=== PATIENT | female | born 1950 | race Caucasian/White ===

== ENCOUNTER 2016-06-24 13:54 | Emergency (ER) | payer MEDICARE, BC ==
[~2016-06-24] VITALS: Ht 167.6 cm; Wt 51.3 kg
[~2016-06-24 13:54] MED LIST: BENADRYL25 MG ORAL; CALCIUM600 M1 PO; EPIPEN 2-P0.3 MG/0.3 IM; FISH OIL 1,0001 EAC3 ORAL; HRT; LORAZEPAM0.5 MG ORAL; MINIVELLE1 EAC1 TD; MULTIVITAMINS1 EAC2 ORAL; OCUFLOX5 ML OP; SEROQUEL300 MG ORAL; TYLENOL EXTRA500 MG ORAL; VITAMIN D1000 UNI1 ORAL; ZANTAC150 MG ORAL; magnesium PO
[2016-06-24 14:48] VITALS: BP 125/69
[2016-06-24 14:59] LABS: BASOPHILS % (AUTO) 1.8 % (0.0-2.0); EOSINOPHILS % (AUTO) 0.6 % (0.0-3.0); LYMPHOCYTES % (AUTO) 21.6 % (20.0-45.0); MEAN CORPUSCULAR HEMOGLOBIN 31.1 PG (27.0-31.0); MEAN CORPUSCULAR HGB CONC 33.6 G/DL (32.0-36.0); MEAN CORPUSCULAR VOLUME 93 FL (80-99); MEAN PLATELET VOLUME 7.6 FL (6.5-10.1); MONOCYTES % (AUTO) 11.1 % (1.0-10.0); NEUTROPHILS % (AUTO) 64.9 % (45.0-75.0); PLATELET COUNT 217 K/UL (150-450); RED BLOOD COUNT 4.18 M/UL (4.20-5.40); WHITE BLOOD COUNT 6.8 K/UL (4.8-10.8)
--- NOTE | 2016-06-24 15:02 | Emergency Room Report ---
History of Present Illness General Chief Complaint: Dizziness Source: Patient Present Illness HPI Patient present with complaints of general weakness Patient has been having dental problems including trying to get a dental implant Over the past one year Was having increased TMJ discomfort also is having flulike symptoms about 2 weeks ago Over the past 2 days however the patient has had increased weakness Had some increased dizziness at times as well Denies any chest pain or shortness of breath denies any neck pain or photophobia Allergies: Coded Allergies: No Known Allergies (Unverified , 04/29/14) Patient History Past Medical History: see triage record Pertinent Family History: none Reviewed Nursing Documentation: PMH: Agreed, PSxH: Agreed Nursing Documentation-PMH Past Medical History: No Stated History Hx Cardiac Problems: No Hx Cancer: No Hx Gastrointestinal Problems: Yes Hx Neurological Problems: Yes - hx migraine Review of Systems All Other Systems: negative except mentioned in HPI Physical Exam Vital Signs Date Time Temp Pulse Resp B/P Pulse Ox O2 Delivery O2 Flow Rate FiO2 06/24/16 14:02 98.4 101 18 109/69 97 Room Air Sp02 EP Interpretation: reviewed, normal General Appearance: no apparent distress Head: normocephalic, atraumatic Eyes: bilateral eye EOMI, bilateral eye PERRL ENT: hearing grossly normal, normal pharynx, TMs + canals normal, uvula midline Neck: full range of motion, supple, no meningismus, no bony tend Respiratory: lungs clear, normal breath sounds, no rhonchi, no respiratory distress, no retraction, no accessory muscle use Cardiovascular #1: normal peripheral pulses, regular rate, rhythm, no edema, no gallop, no JVD, no murmur Gastrointestinal: normal bowel sounds, non tender, soft, no mass, no organomegaly, non-distended, no guarding, no hernia, no pulsatile mass, no rebound Genitourinary: no CVA tenderness Musculoskeletal: normal inspection Neurologic: oriented x3, responsive, representative III-XII nml as tested, motor strength/ tone normal, sensory intact Psychiatric: mood/affect normal Skin: normal color, no rash, warm/dry, palpation normal Lymphatic: normal inspection, no adenopathy Medical Decision Making Diagnostic Impression: Primary Impression: Dizziness Additional Impression: UTI (urinary tract infection) ER Course Multiple differentials considered patient is complex requiring blood work and imaging study Chest x-ray was normal patient was further hydrated Patient and the family member discussed different headaches the patient was having However the patient states that she has had several MRIs as seen specialty neurologist that [facility] I do not see any focal deficits requiring acute emergency CT The patient's urine sample did show infectious pathology and the patient was placed on antibiotics and requires close outpatient followup Labs Test 06/24/16 14:30 White Blood Count 6.8 K/UL (4.8-10.8) Red Blood Count 4.18 M/UL (4.20-5.40) Hemoglobin 13.0 G/DL (12.0-16.0) Hematocrit 38.6 % (37.0-47.0) Mean Corpuscular Volume 93 FL (80-99) Mean Corpuscular Hemoglobin 31.1 PG (27.0-31.0) Mean Corpuscular Hemoglobin Concent 33.6 G/DL (32.0-36.0) Red Cell Distribution Width 11.0 % (11.6-14.8) Platelet Count 217 K/UL (150-450) Mean Platelet Volume 7.6 FL (6.5-10.1) Neutrophils (%) (Auto) 64.9 % (45.0-75.0) Lymphocytes (%) (Auto) 21.6 % (20.0-45.0) Monocytes (%) (Auto) 11.1 % (1.0-10.0) Eosinophils (%) (Auto) 0.6 % (0.0-3.0) Basophils (%) (Auto) 1.8 % (0.0-2.0) Urine Color Yellow Urine Appearance Clear Urine pH 6 (4.5-8.0) Urine Specific [place] 1.015 (1.005-1.035) Urine Protein 1+ (NEGATIVE) Urine Glucose (UA) Negative (NEGATIVE) Urine Ketones Negative (NEGATIVE) Urine Occult Blood 3+ (NEGATIVE) Urine Nitrite Negative (NEGATIVE) Urine Bilirubin Negative (NEGATIVE) Urine Urobilinogen 1 MG/DL (0.0-1.0) Urine Leukocyte Esterase 2+ (NEGATIVE) Urine RBC 10-15 /HPF (0 - 2) Urine WBC 5-10 /HPF (0 - 2) Urine Squamous Epithelial Cells Moderate /LPF (NONE/OCC) Urine Amorphous Sediment Few /LPF (NONE) Urine Bacteria Moderate /HPF (NONE) Sodium Level 139 mEQ/L (135-145) Potassium Level 4.1 mEQ/L (3.4-4.9) Chloride Level 98 mEQ/L (98-107) Carbon Dioxide Level 26 mEQ/L (20-30) Anion Gap 15 (5-15) Blood Urea Nitrogen 15 mg/dL (7-23) Creatinine 1.0 mg/dL (0.5-0.9) Estimat Glomerular Filtration Rate 55.5 mL/min (>60) Glucose Level 127 mg/dL (74-106) Lactic Acid Level 1.30 mmol/L (0.66-2.22) Calcium Level 9.3 mg/dL (8.6-10.2) Total Bilirubin 0.2 mg/dL (0.0-1.2) Aspartate Amino Transf (AST/SGOT) 24 U/L (5-40) Alanine Aminotransferase (ALT/SGPT) 15 U/L (3-33) Alkaline Phosphatase 57 U/L (35-104) Total Creatine Kinase 82 U/L (26-140) Creatine Kinase MB < 1.5 ng/mL (< 3.8) Creatine Kinase MB Relative Index Total Protein 6.7 g/dL (6.6-8.7) Albumin 4.3 g/dL (3.5-5.2) Globulin 2.4 g/dL Albumin/Globulin Ratio 1.7 (1.0-2.7) Rhythm Strip Diag. Results EP Interpretation: yes Rate: 77 Rhythm: NSR, no PVC's, no ectopy Chest X-Ray Diagnostic Results EP Interpretation: Yes Findings: no consolidation, no effusion, no pneumothorax Number of Views: 1 Last Vital Signs Date Time Temp Pulse Resp B/P Pulse Ox O2 Delivery O2 Flow Rate FiO2 06/24/16 14:48 98.4 71 18 125/69 97 Room Air Status: improved Disposition: HOME, SELF-CARE Condition: Improved Scripts Ibuprofen* (MOTRIN*) 600 Mg Tablet 600 MG ORAL Q8H Y for For Pain, #20 TAB 0 Refills Prov: JORGE MILAN.OLuz Marina 06/24/16 Ciprofloxacin Hcl* (CIPROFLOXACIN HCL*) 500 Mg Tablet 500 MG ORAL Q12H, #14 TAB 0 Refills Prov: JORGE MILANOLuz Marina 06/24/16 Additional Instructions: Patient is provided with the discharge instructions notified to follow up with primary doctor in the next 2-3 days otherwise return to the er with any worsening symptoms. JORGE MILAN D.O. Jun 24, 2016 15:02
[2016-06-24 15:07] LABS: APPEARANCE,URINE CLEAR; KETONES,URINE NEGATIVE (NEGATIVE); LEUKOCYTE ESTERASE ,URINE 2+ (NEGATIVE); NITRITE,URINE NEGATIVE (NEGATIVE); PH,URINE 6 (4.5-8.0); PROTEIN,URINE 1+ (NEGATIVE); UROBILINOGEN,URINE 1 MG/DL (0.0-1.0)
[2016-06-24 15:14] LABS: ALANINE AMINOTRANSFERASE 15 U/L (3-33); ALBUMIN/GLOBULIN RATIO 1.7 (1.0-2.7); ANION GAP 15 (5-15); ASPARTATE AMINO TRANSFERASE 24 U/L (5-40); CALCIUM 9.3 mg/dL (8.6-10.2); CARBON DIOXIDE 26 mEQ/L (20-30); CHLORIDE 98 mEQ/L (98-107); GLOMERULAR FILTRATION RATE 55.5 mL/min (>60); HEMOLYSIS 9; POTASSIUM 4.1 mEQ/L (3.4-4.9); SODIUM 139 mEQ/L (135-145); TOTAL PROTEIN 6.7 g/dL (6.6-8.7)
[2016-06-24 15:20] VITALS: BP 142/78
[2016-06-24 15:24] LABS: CKMB < 1.5 ng/mL (< 3.8)
[2016-06-24 15:28] LABS: AMORPHOUS SEDIMENT,UR FEW /LPF; BACTERIA,URINE MODERATE /HPF; SQUAMOUS EPITHELIAL CELL,UR MODERATE /LPF (NONE/OCC)
[2016-06-24] MEDS ORDERED: CIPROFLOXACIN500 M2 ORAL (15:43)
[2016-06-24] MEDS ORDERED: IBUPROFEN600 MG ORAL (15:43)
[2016-06-24] MEDS ORDERED: Ciprofloxacin 500mg tab ORAL ONE (15:45)
[2016-06-24 15:55] VITALS: BP 142/78
--- NOTE | 2016-06-25 15:57 | Diagnostic Imaging Report ---
Indication: Shortness of breath Technique: Single portable AP view of the chest. Findings: Comparison: None. Lung symmetrically hyperinflated, clear. The bones and extra pulmonary soft tissues, cardiomediastinal silhouette, pulmonary vasculature, and pleural surfaces are unremarkable. IMPRESSION: No evidence of acute cardiopulmonary disease Pulmonary findings suggest COPD.
--- NOTE | 2016-07-23 15:36 | Cardiology Report ---
APPROVED REPORT EKG Measurement Heart [id number] Normal sinus rhythm with sinus arrhythmia Possible Left atrial enlargement Borderline ECG
== END 2016-06-24 15:57 | disposition home or self-care (01) ==
LOC: EMR 14:10
DX: R42 Dizziness and giddiness (principal); N39.0 Urinary tract infection, site not specified; Z86.69 Personal history of other diseases of the nervous system and sense organs
CPT/HCPCS: 36415; 71010; 80053; 81003; 82550; 82553; 83605; 85025; 87040; 87086; 93005; 96374

== ENCOUNTER 2016-12-14 19:14 | Emergency (ER) | payer MEDICARE, BC ==
[~2016-12-14] VITALS: Ht 167.6 cm; Wt 53.5 kg
[~2016-12-14 19:14] MED LIST changes: +CIPROFLOXACIN500 M2 ORAL; +IBUPROFEN600 MG ORAL
[2016-12-14 20:00] VITALS: BP 147/63
[2016-12-14] MEDS ORDERED: Augmentin 875mg Tab ORAL ONE (20:00)
[2016-12-14] MEDS ORDERED: Tetanus/Diptheria/Pertussis Vaccine 0.5ml Syr IM ONE (20:00)
[2016-12-14] MEDS ORDERED: AUGMENTIN 875-1 EAC1 ORAL (20:07)
[2016-12-14 20:20] VITALS: BP 147/63
--- NOTE | 2016-12-16 04:34 | Emergency Room Report ---
History of Present Illness General Chief Complaint: Animal Bite Source: Patient Present Illness HPI The patient is a 66-year-old female who presented after increased pain and swelling to her hand. Patient reports having recently been bitten by cat. She had not been having any fever. She reports having increased swelling. She reports having some increased redness to the area. She reports having no recent tetanus vaccine. Allergies: Coded Allergies: No Known Allergies (Unverified , 04/29/14) Patient History Past Medical History: see triage record Reviewed Nursing Documentation: PMH: Agreed, PSxH: Agreed Nursing Documentation-PMH Past Medical History: No History, Except For Hx Cancer: No Hx Gastrointestinal Problems: Yes Hx Neurological Problems: Yes - Migraine Review of Systems All Other Systems: negative except mentioned in HPI Physical Exam Vital Signs Date Time Temp Pulse Resp B/P Pulse Ox O2 Delivery O2 Flow Rate FiO2 12/14/16 19:42 98.1 76 16 156/76 100 Room Air General Appearance: well appearing, no apparent distress, alert, GCS 15 Head: normocephalic, atraumatic ENT: hearing grossly normal, normal voice Neck: full range of motion, supple Respiratory: no respiratory distress, speaking full sentences Gastrointestinal: normal inspection Musculoskeletal: normal inspection, no calf tenderness Neurologic: normal inspection, alert, oriented x3, responsive, normal gait Psychiatric: mood/affect normal Skin: rash - erythema patch to dorsum of hand Medical Decision Making Diagnostic Impression: Primary Impression: Cat bite ER Course Patient presented for extremity pain after bite. Differential diagnosis included was not limited to cellulitis, abscess, necrotizing fasciitis among others. Patient's benign exam and does not appear to require any further imaging or laboratory testing at this time. The patient presented a mild infection to her hand. Patient was given a prescription for Augmentin. She is given tetanus vaccine. Patient is advised to have the wound checked in one to 2 days. She is advised to return if she began having increased pain or swelling or other concerns. Last Vital Signs Date Time Temp Pulse Resp B/P Pulse Ox O2 Delivery O2 Flow Rate FiO2 12/14/16 20:20 98.1 73 16 147/63 100 Room Air Status: improved Disposition: HOME, SELF-CARE Condition: Stable Scripts Amoxicillin/Potassium Clav 875-125* (AUGMENTIN 875-125 TABLET*) 1 Each Tablet 1 TAB ORAL TWICE A DAY, #14 TAB Prov: Evens Katz 12/14/16 Patient Instructions: Animal Bite Evens Katz Dec 16, 2016 04:34
== END 2016-12-14 20:20 | disposition home or self-care (01) ==
LOC: EMR 19:48
DX: S61.459A Open bite of unspecified hand, initial encounter (principal); Z23 Encounter for immunization; W55.01XA Bitten by cat, initial encounter; Y92.9 Unspecified place or not applicable
CPT/HCPCS: 90471; 90715; 96372; 99283

== ENCOUNTER 2017-04-07 16:24 | Outpatient (RCR) | payer MEDICARE, BC ==
[~2017-04-07 16:24] MED LIST changes: +AUGMENTIN 875-1 EAC1 ORAL; +LEXAPRO10 MG ORAL
== END 2017-04-08 | disposition home or self-care (01) ==
LOC: PTY 16:24
DX: M54.2 Cervicalgia (principal)
CPT/HCPCS: 97110; 97140; 97161; G0283; G8984; G8985

== ENCOUNTER 2017-10-28 20:08 | Emergency (ER) | payer MEDICARE, BC ==
[~2017-10-28] VITALS: Ht 167.6 cm; Wt 54.4 kg
[2017-10-28] MEDS ORDERED: AUGMENTIN 875-1 EAC1 ORAL ×2 (20:24→20:51)
[2017-10-28 20:30] VITALS: BP 123/79
[2017-10-28 21:05] VITALS: BP 125/77
--- NOTE | 2017-10-28 21:14 | Emergency Room Report ---
History of Present Illness General Chief Complaint: Sore Throat Source: Patient Present Illness HPI Patient presents with complaints of sore throat Ongoing for the past 7 days She reports being seen at urgent care several days ago and was given azithromycin Denies any chest pain or shortness of breath denies any vomiting or diarrhea had subjective fevers at home low-grade Denies any neck pain or photophobia Denies any dysuria frequency Allergies: Coded Allergies: SERTRALINE (Verified Adverse Reaction, Intermediate, 03/28/17) severe agitaqtion, crying , anxious Patient History Past Medical History: see triage record Pertinent Family History: none Last Menstrual Period: NA Reviewed Nursing Documentation: PMH: Agreed; PSxH: Agreed Nursing Documentation-PMH Hx Cancer: No Hx Gastrointestinal Problems: Yes Hx Neurological Problems: Yes - Migraine Review of Systems All Other Systems: negative except mentioned in HPI Physical Exam Vital Signs Date Time Temp Pulse Resp B/P (MAP) Pulse Ox O2 Delivery O2 Flow Rate FiO2 10/28/17 20:11 98.7 110 18 123/79 98 Room Air 98.8 Sp02 EP Interpretation: reviewed, normal General Appearance: well appearing, no apparent distress Head: normocephalic, atraumatic Eyes: bilateral eye PERRL, bilateral eye EOMI ENT: hearing grossly normal, no angioedema, normal voice, uvula midline, pharyngeal erythema Neck: supple Respiratory: lungs clear Cardiovascular #1: regular rate, rhythm Gastrointestinal: non tender, soft Musculoskeletal: normal inspection Neurologic: alert, oriented x3 Psychiatric: anxious Skin: no rash, warm/dry Lymphatic: no adenopathy Medical Decision Making Diagnostic Impression: Primary Impression: pharyngitis ER Course Patient was seen and dispositioned There was some commotion and asking further patient was asking to have the medication called in There was some confusion regarding which pharmacy it was patient had become very anxious The correct pharmacy was entered into the computer And was able to be E scribed Last Vital Signs Date Time Temp Pulse Resp B/P (MAP) Pulse Ox O2 Delivery O2 Flow Rate FiO2 10/28/17 20:11 98.7 110 18 123/79 98 Room Air 98.8 Status: improved Disposition: HOME, SELF-CARE Condition: Improved Scripts Amoxicillin/Potassium Clav 875-125* (AUGMENTIN 875-125 TABLET*) 1 Each Tablet 1 TAB ORAL TWICE A DAY, #20 TAB Prov: Kayode Barry DO 10/28/17 Amoxicillin/Potassium Clav 875-125* (AUGMENTIN 875-125 TABLET*) 1 Each Tablet 1 TAB ORAL TWICE A DAY, #20 TAB Prov: Kayode Barry DO 10/28/17 Referrals: NOT CHOSEN IPA/MD,REFERRING (PCP) Patient Instructions: Pharyngitis, [id number] Additional Instructions: Patient is provided with the discharge instructions notified to follow up with primary doctor in the next 2-3 days otherwise return to the er with any worsening symptoms. Please note that this report is being documented using [employer] technology. This can lead to erroneous entry secondary to incorrect interpretation by the dictating instrument. Kayode Barry DO October 28, 2017 21:14
== END 2017-10-28 21:00 | disposition home or self-care (01) ==
LOC: EMR 20:30
DX: J02.9 Acute pharyngitis, unspecified (principal)
CPT/HCPCS: 99284

== ENCOUNTER 2019-02-23 09:40 | Outpatient (CLI) | payer MEDICARE, BC ==
[~2019-02-23 09:40] MED LIST changes: +CYMBALTA20 MG ORAL; +DICYCLOMINE HCL10 MG PO; +LACTULOSE20 GM/301 ORAL; +SEROQUEL50 MG ORAL; +TYLENOL325 MG ORAL
== END 2019-02-23 11:40 | disposition home or self-care (01) ==
LOC: ECT 09:40
DX: F33.2 Major depressive disorder, recurrent severe without psychotic features (principal); F41.9 Anxiety disorder, unspecified; M19.90 Unspecified osteoarthritis, unspecified site; Z79.899 Other long term (current) drug therapy; F12.90 Cannabis use, unspecified, uncomplicated

== ENCOUNTER 2019-03-03 06:37 | Outpatient (RCR) | payer MEDICARE, BC ==
[~2019-03-03] VITALS: Ht 162.6 cm; Wt 56.2 kg
[~2019-03-03 06:37] MED LIST changes: +Methohexital Sodium Syr 100mg/10ml IVP ONE; +NS 500ML ONE; +Succinylcholine 20mg/ml 10ml vial ONE
[2019-03-03] MEDS ORDERED: NS 500ML ONE (06:38)
[2019-03-03] MEDS ORDERED: Methohexital Sodium Syr 100mg/10ml IVP ONE (06:38)
[2019-03-03] MEDS ORDERED: Succinylcholine 20mg/ml 10ml vial ONE (06:38)
[2019-03-03 09:47] VITALS: BP 154/79
[2019-03-03 10:28] VITALS: BP 154/79
[2019-03-03 10:41] VITALS: BP 138/60
[2019-03-03 10:46] VITALS: BP 148/61
[2019-03-03 10:51] VITALS: BP 139/67
[2019-03-03 10:56] VITALS: BP 146/63
[2019-03-05 09:24] VITALS: BP 142/83
[2019-03-05 09:40] VITALS: BP 146/65
[2019-03-05 09:45] VITALS: BP 146/66
[2019-03-05 09:50] VITALS: BP 150/66
[2019-03-05 09:55] VITALS: BP 166/62
[2019-03-08] MEDS ORDERED: Methohexital Sodium Syr 100mg/10ml IVP ONE (06:00)
[2019-03-08] MEDS ORDERED: NS 500ML ONE (06:00)
[2019-03-08] MEDS ORDERED: Succinylcholine 20mg/ml 10ml vial ONE (06:00)
[2019-03-08 10:06] VITALS: BP 171/80
[2019-03-08 10:18] VITALS: BP 147/78
[2019-03-08 10:23] VITALS: BP 142/60
[2019-03-08 10:28] VITALS: BP 150/66
[2019-03-08 10:33] VITALS: BP 162/62
== END 2019-03-08 | disposition home or self-care (01) ==
LOC: ECT 06:37
DX: F33.2 Major depressive disorder, recurrent severe without psychotic features (principal); F41.9 Anxiety disorder, unspecified; M19.90 Unspecified osteoarthritis, unspecified site
CPT/HCPCS: 90870; J0330; J7040

== ENCOUNTER 2019-03-10 10:30 | Outpatient (RCR) | payer MEDICARE, BC ==
[~2019-03-10] VITALS: Ht 162.6 cm; Wt 56.2 kg
[2019-03-10 10:09] VITALS: BP 155/84
[2019-03-10 10:20] VITALS: BP 147/60
[2019-03-10 10:25] VITALS: BP 151/69
[2019-03-10 10:30] VITALS: BP 155/63
[2019-03-10 10:35] VITALS: BP 156/67
[2019-03-12] MEDS ORDERED: MIRALAX17 G2 ORAL (14:55)
== END 2019-04-08 | disposition home or self-care (01) ==
LOC: ECT 10:30
DX: F33.2 Major depressive disorder, recurrent severe without psychotic features (principal)
CPT/HCPCS: 90870; J0330; J2405; J7040

== ENCOUNTER 2019-03-12 12:30 | Emergency (ER) | payer MEDICARE, BC ==
[~2019-03-12] VITALS: Ht 167.6 cm; Wt 54.4 kg
[~2019-03-12 12:30] MED LIST changes: -Methohexital Sodium Syr 100mg/10ml IVP ONE; -NS 500ML ONE; -Succinylcholine 20mg/ml 10ml vial ONE
[2019-03-12] MEDS ORDERED: Omnipaque-300 100ml vial INJ PRN (12:45)
[2019-03-12] MEDS ORDERED: Magnesium Citrate Liq Btl ORAL ONE (12:45)
--- NOTE | 2019-03-12 13:00 | Emergency Room Report ---
History of Present Illness General Chief Complaint: Abdominal Pain Source: Patient Present Illness HPI 68-year-old female history of constipation presents with 4 days of constipation last bowel movement was a few hard pellets today, she endorses some nausea no vomiting no chest pain, she endorses diffuse generalized aches of the abdomen no aggravating relieving factors severity is moderate, intermittent, patient has been taking laxatives to help her defecate. Patient presents for evaluation Allergies: Coded Allergies: SERTRALINE (Verified Adverse Reaction, Intermediate, 03/28/17) severe agitaqtion, crying , anxious Patient History Past Medical History: see triage record Reviewed Nursing Documentation: PMH: Agreed; PSxH: Agreed Nursing Documentation-PMH Past Medical History: No History, Except For Hx Cancer: No Hx Gastrointestinal Problems: Yes Hx Neurological Problems: Yes - Migraine Review of Systems All Other Systems: negative except mentioned in HPI Physical Exam Vital Signs Date Time Temp Pulse Resp B/P (MAP) Pulse Ox O2 Delivery O2 Flow Rate FiO2 03/12/19 12:36 84 20 170/88 (115) 95 Room Air Sp02 EP Interpretation: reviewed, normal General Appearance: well appearing, no apparent distress, alert Head: normocephalic, atraumatic Eyes: bilateral eye PERRL, bilateral eye EOMI ENT: uvula midline, moist mucus membranes Neck: supple, thyroid normal, supple/symm/no masses Respiratory: lungs clear, no respiratory distress, no retraction, no accessory muscle use Cardiovascular #1: normal peripheral pulses, regular rate, rhythm, no edema, no gallop, no murmur Gastrointestinal: non tender, soft, no guarding, no rebound Rectal: other - Faith RN, no stool in the vault rectal exam unremarkable Musculoskeletal: normal inspection Neurologic: alert, oriented x3 Psychiatric: mood/affect normal Skin: no rash, warm/dry Medical Decision Making Diagnostic Impression: Primary Impression: Abdominal pain Qualified Codes: R10.84 - Generalized abdominal pain Additional Impression: Constipation Qualified Codes: K59.00 - Constipation, unspecified ER Course 68-year-old female presents with constipation x4 days, patient was able to pass stool today with some solid tobi, will evaluate for obstruction versus impaction versus colitis Stool vault unremarkable, labs unremarkable, GI cocktail, pain medication provided Reevaluation 2:54 PM, patient is refusing enema Reevaluation 3:16 PM, abdomen remains soft nontender, counseled patient on proper bowel regimen, spoke with who was at bedside, patient is adamant she has never been here for the same problem Patient will follow up with her doctor strict abdominal return precautions were discussed Disposition home with return precautions Laboratory Tests Test 03/12/19 12:40 03/12/19 12:45 White Blood Count 9.9 K/UL (4.8-10.8) Red Blood Count 4.60 M/UL (4.20-5.40) Hemoglobin 14.2 G/DL (12.0-16.0) Hematocrit 42.4 % (37.0-47.0) Mean Corpuscular Volume 92 FL (80-99) Mean Corpuscular Hemoglobin 31.0 PG (27.0-31.0) Mean Corpuscular Hemoglobin Concent 33.6 G/DL (32.0-36.0) Red Cell Distribution Width 10.6 % (11.6-14.8) L Platelet Count 252 K/UL (150-450) Mean Platelet Volume 7.1 FL (6.5-10.1) Neutrophils (%) (Auto) 71.9 % (45.0-75.0) Lymphocytes (%) (Auto) 18.5 % (20.0-45.0) L Monocytes (%) (Auto) 8.1 % (1.0-10.0) Eosinophils (%) (Auto) 0.3 % (0.0-3.0) Basophils (%) (Auto) 1.2 % (0.0-2.0) Prothrombin Time 10.0 SEC (9.30-11.50) Prothrombin Time INR 0.9 (0.9-1.1) PTT 25 SEC (23-33) Sodium Level 138 MMOL/L (136-145) Potassium Level 3.7 MMOL/L (3.5-5.1) Chloride Level 104 MMOL/L (98-107) Carbon Dioxide Level 23 MMOL/L (21-32) Anion Gap 12 mmol/L (5-15) Blood Urea Nitrogen 15 mg/dL (7-18) Creatinine 1.1 MG/DL (0.55-1.30) Estimate Glomerular Filtration Rate 49.4 mL/min (>60) Glucose Level 132 MG/DL (74-106) H Calcium Level 9.0 MG/DL (8.5-10.1) Total Bilirubin 0.5 MG/DL (0.2-1.0) Aspartate Amino Transferase (AST) 27 U/L (15-37) Alanine Aminotransferase (ALT) 28 U/L (12-78) Alkaline Phosphatase 60 U/L (46-116) Troponin I 0.000 ng/mL (0.000-0.056) Total Protein 7.4 G/DL (6.4-8.2) Albumin 4.1 G/DL (3.4-5.0) Globulin 3.3 g/dL Albumin/Globulin Ratio 1.2 (1.0-2.7) Lipase 201 U/L (73-393) Urine Color Pale yellow Urine Appearance Clear Urine pH 5 (4.5-8.0) Urine Specific [place] 1.010 (1.005-1.035) Urine Protein Negative (NEGATIVE) Urine Glucose (UA) Negative (NEGATIVE) Urine Ketones Negative (NEGATIVE) Urine Blood 4+ (NEGATIVE) H Urine Nitrite Negative (NEGATIVE) Urine Bilirubin Negative (NEGATIVE) Urine Urobilinogen Normal MG/DL (0.0-1.0) Urine Leukocyte Esterase Negative (NEGATIVE) Urine RBC 0-2 /HPF (0 - 2) Urine WBC 0-2 /HPF (0 - 2) Urine Squamous Epithelial Cells Occasional /LPF Urine Bacteria Occasional /HPF (NONE) Urine Opiates Screen Negative (NEGATIVE) Urine Barbiturates Screen Negative (NEGATIVE) Phencyclidine (PCP) Screen Negative (NEGATIVE) Urine Amphetamines Screen Negative (NEGATIVE) Urine Benzodiazepines Screen Negative (NEGATIVE) Urine Cocaine Screen Negative (NEGATIVE) Urine Marijuana (THC) Screen Positive (NEGATIVE) H EKG Diagnostic Results EKG Time: 13:16 EP Interpretation: NSR, rate 63, QTc 450, no acute ST elevations, normal axis Rhythm Strip Diag. Results Rhythm Strip Time: 14:55 EP Interpretation: yes Rate: 68 Rhythm: NSR, no PVC's, no ectopy CT/MRI/US Diagnostic Results CT/MRI/US Diagnostic Results : Impression Procedure: CT Abdomen Pelvis w/Contrast Indication: Abdominal pain Technique: Continuous helical transaxial imaging of the abdomen and pelvis was obtained from the lung bases to the pubic symphysis during intravenous contrast administration. Coronal 2-D reformats were also obtained. Study obtained in a Siemens sensation [address] Automatic Exposure Control was utilized. Total Dose length Product (DLP): 978.[address] Dose Index Volume (CTDIvol): 18.7 mGy Comparison: 10/18/2018 Findings: The lung bases are clear. There is a 6 cm cyst within the posterior part of the left kidney. There are other cysts demonstrated of varying size bilaterally. The largest cyst on the right is 4.5 cm. Aortoiliac calcifications are moderate. The liver and spleen, pancreas, gallbladder appear unremarkable. There is no adrenal mass. There is no free fluid. Bowel gas pattern appears nonobstructive. There is moderate stool in the colon. Appendix is normal. Bladder is unremarkable. Uterus noted. There is narrowing of intervertebral discs and accompanying endplate osteophyte formation. The central canal appears narrow which may be on a congenital basis. This may be further evaluated with MRI as warranted clinically. Hypertrophied facet joints also demonstrated. IMPRESSION: No acute findings. Bilateral renal cysts. Degenerative changes of the spine Atherosclerotic vascular disease The CT scanner at [facility] is accredited by the [employer] and the scans are performed using dose optimization techniques as appropriate to a performed exam including Automatic Exposure control. Dictated By: Fam Astorga MD Electronically Signed By: Fam Astorga MD Signed Date/Time 03/12/19 3098 CC: Patricio Fernandez MD Last Vital Signs Date Time Temp Pulse Resp B/P (MAP) Pulse Ox O2 Delivery O2 Flow Rate FiO2 03/12/19 12:54 84 20 Room Air 03/12/19 12:36 170/88 (115) 95 Disposition: HOME, SELF-CARE Condition: Stable Scripts Polyethylene Glycol 3350* (MIRALAX*) 17 Gm Powd.pack 17 GM ORAL DAILY, #30 PACKET Prov: Patricio Fernandez MD 03/12/19 Referrals: [facility]. [facility] Patient Instructions: Abdominal Pain, Adult, Constipation, Adult, [id number] Additional Instructions: The patient was provided with discharge instructions, notified to follow-up with a primary care doctor and or specialist in the next 24-48 hours, and to return to the ED if they have worsening of their symptoms. Please note that this report is being documented using [employer] technology. This can lead to erroneous entry secondary to incorrect interpretation by the dictating instrument. Patricio Fernandez MD Mar 12, 2019 13:00
[2019-03-12 13:05] VITALS: BP 155/70
--- NOTE | 2019-03-12 13:06 | NUR ---
ED Nurse Note:pt. came from home with c/o abdominal pain, nausea vomiting, possible constipation, pt. is A/Ox4 ambulatory, blood and urine sent to labs, given PO med
[2019-03-12 13:17] LABS: APPEARANCE,URINE CLEAR; BILIRUBIN, URINE NEGATIVE (NEGATIVE); COLOR,URINE PALE YELLOW; GLUCOSE, URINE (UA) NEGATIVE (NEGATIVE); KETONES,URINE NEGATIVE (NEGATIVE); LEUKOCYTE ESTERASE ,URINE NEGATIVE (NEGATIVE); NITRITE,URINE NEGATIVE (NEGATIVE); PH,URINE 5 (4.5-8.0); PROTEIN,URINE NEGATIVE (NEGATIVE); UROBILINOGEN,URINE NORMAL MG/DL (0.0-1.0)
[2019-03-12 13:17] LABS: BASOPHILS % (AUTO) 1.2 % (0.0-2.0); EOSINOPHILS % (AUTO) 0.3 % (0.0-3.0); HEMATOCRIT 42.4 % (37.0-47.0); HEMOGLOBIN 14.2 G/DL (12.0-16.0); LYMPHOCYTES % (AUTO) 18.5 % (20.0-45.0); MEAN CORPUSCULAR VOLUME 92 FL (80-99); MONOCYTES % (AUTO) 8.1 % (1.0-10.0); NEUTROPHILS % (AUTO) 71.9 % (45.0-75.0); PLATELET COUNT 252 K/UL (150-450); RED CELL DISTRIBUTION WIDTH 10.6 % (11.6-14.8); WHITE BLOOD COUNT 9.9 K/UL (4.8-10.8)
[2019-03-12 13:36] LABS: INR 0.9 (0.9-1.1)
[2019-03-12 13:38] LABS: ANION GAP 12 mmol/L (5-15); BLOOD UREA NITROGEN 15 mg/dL (7-18); CARBON DIOXIDE 23 MMOL/L (21-32); CHLORIDE 104 MMOL/L (98-107); CREATININE 1.1 MG/DL (0.55-1.30); POTASSIUM 3.7 MMOL/L (3.5-5.1); SODIUM 138 MMOL/L (136-145)
[2019-03-12 13:43] LABS: ALANINE AMINOTRANSFERASE 28 U/L (12-78); ALBUMIN 4.1 G/DL (3.4-5.0); ALBUMIN/GLOBULIN RATIO 1.2 (1.0-2.7); ALKALINE PHOSPHATASE 60 U/L (46-116); ASPARTATE AMINO TRANSFERASE 27 U/L (15-37); BILIRUBIN,TOTAL 0.5 MG/DL (0.2-1.0)
[2019-03-12] MEDS ORDERED: Morphine Sulfate 4mg/ml Inj (IV USE ONLY) IVP ONE ×2 (13:45→15:00)
--- NOTE | 2019-03-12 13:50 | NUR ---
ED Nurse Note: pt taken down fot CT in stable condition
--- NOTE | 2019-03-12 14:21 | NUR ---
ED Nurse Note: Pt back from CT in stable condition
[2019-03-12] MEDS ORDERED: Meclizine 25mg tab ORAL ONE (14:45)
[2019-03-12] MEDS ORDERED: Fleet's Mineral Oil Enema RECTAL ONE (14:45)
[2019-03-12] MEDS ORDERED: MIRALAX17 G2 ORAL (14:55)
[2019-03-12] MEDS: Mylanta II UD 30ml ORAL ONE ×2 (14:56→15:01)
[2019-03-12] MEDS: Lidocaine 2% Visc 15ml soln ORAL ONE ×2 (14:56→15:01)
[2019-03-12] MEDS ORDERED: Metoclopramide 10mg/2ml Inj IVP ONE (15:00)
--- NOTE | 2019-03-12 15:03 | Diagnostic Imaging Report ---
Indication: Abdominal pain Technique: Continuous helical transaxial imaging of the abdomen and pelvis was obtained from the lung bases to the pubic symphysis during intravenous contrast administration. Coronal 2-D reformats were also obtained. Study obtained in a Siemens sensation [address] Automatic Exposure Control was utilized. Total Dose length Product (DLP): 978.[address] Dose Index Volume (CTDIvol): 18.7 mGy Comparison: 10/18/2018 Findings: The lung bases are clear. There is a 6 cm cyst within the posterior part of the left kidney. There are other cysts demonstrated of varying size bilaterally. The largest cyst on the right is 4.5 cm. Aortoiliac calcifications are moderate. The liver and spleen, pancreas, gallbladder appear unremarkable. There is no adrenal mass. There is no free fluid. Bowel gas pattern appears nonobstructive. There is moderate stool in the colon. Appendix is normal. Bladder is unremarkable. Uterus noted. There is narrowing of intervertebral discs and accompanying endplate osteophyte formation. The central canal appears narrow which may be on a congenital basis. This may be further evaluated with MRI as warranted clinically. Hypertrophied facet joints also demonstrated. IMPRESSION: No acute findings. Bilateral renal cysts. Degenerative changes of the spine Atherosclerotic vascular disease The CT scanner at [facility] is accredited by the [employer] and the scans are performed using dose optimization techniques as appropriate to a performed exam including Automatic Exposure control.
[2019-03-12 15:31] VITALS: BP 152/73
--- NOTE | 2019-03-16 14:27 | Cardiology Report ---
APPROVED REPORT EKG Measurement Heart [id number] Normal sinus rhythm Normal ECG
== END 2019-03-12 15:31 | disposition home or self-care (01) ==
LOC: EMR 13:10
DX: K59.00 Constipation, unspecified (principal); R10.84 Generalized abdominal pain; Z88.8 Allergy status to other drugs, medicaments and biological substances; N28.1 Cyst of kidney, acquired; I70.90 Unspecified atherosclerosis
CPT/HCPCS: 36415; 74177; 80053; 80307; 81003; 83690; 84484; 85025; 85610; 85730; 93005; 96361; 96374; 96375; 96376; 99284; J2270; J2405; J2765; Q9967; S0028